=== PATIENT | male | born 1990 | race American Indian/Alaskan Native ===

== ENCOUNTER 2016-05-28 18:54 | Emergency (ER) | payer SELFPAY ==
[2016-05-28 20:19] LABS: Basophils % (Auto) 0.7 % (0.0-1.8); Eosinophils % (Auto) 0.3 % (0.0-4.3); Hematocrit 42.2 % (35.5-45.6); Hemoglobin 14.4 gm/dl (11.8-15.2); Mean Corpuscular HGB Conc 34 % (32-34); Mean Corpuscular Hemoglobin 28 pg (28-32); Mean Corpuscular Volume 81 fl (84-94); Platelet Count 274 K/mm3 (140-440); Red Cell Distribution Width 14.9 % (13.2-15.2); White Blood Count 6.2 K/mm3 (4.5-11.0)
[2016-05-28 20:33] LABS: Anion Gap 20 mmol/L; BUN/Creatinine Ratio 8.18; Blood Urea Nitrogen 9 mg/dL (9-20); Carbon Dioxide 22 mmol/L (22-30); Chloride 99.9 mmol/L (98-107); Glucose 99 mg/dL (75-100); Potassium 3.8 mmol/L (3.6-5.0); Sodium 138 mmol/L (137-145)
[2016-05-28 20:48] LABS: Urine Drugs of Abuse Note Disclamer
[2016-05-28] MEDS ORDERED: NORMODYNE IV ONE (20:53)
--- NOTE | 2016-05-28 21:01 | Emergency Department Report ---
HPI - General Chief Complaint: Psych Time Seen by Provider: 05/28/16 19:57 - HPI HPI: The patient is a 25 yo male who presents for evaluation of mental health. The patient has a history of past suicide attempt and schizoaffective disease. The patient reports 4 days of constant and severe sadness, exacerbated with alcohol consumption, and associated with suicidal ideations. He states that he has thought of a plan to overdose on his prescription medications. The patient denies fever, headache, unexplained weight loss or weight gain, heat or cold intolerance, skin, hair, or nail changes, neuro deficits, homicidal ideations, or auditory or visual hallucinations. ED Past Medical Hx - Past Medical History Previous Medical History?: Yes Hx Hypertension: Yes Hx Psychiatric Treatment: Yes (SCHIZOPHRENIA / PTSD) Additional medical history: hypothyroid - Surgical History Past Surgical History?: No - Social History Smoking Status: Current Every Day Smoker Substance Use Type: Alcohol - Medications Home Medications: Home Medications Medication Instructions Recorded Confirmed Last Taken Type Celexa 30 mg PO DAILY 10/25/14 11/29/14 11/18/14 History Lisinopril 10 mg PO DAILY 10/25/14 11/29/14 11/18/14 History SEROquel 500 mg PO QHS 10/25/14 11/29/14 11/17/14 History Synthroid 25 mcg PO DAILY 10/25/14 11/29/14 11/18/14 History Xanax TAB 2 mg PO TID 10/25/14 11/29/14 11/17/14 History traZODone 250 mg PO QHS 10/25/14 11/29/14 11/17/14 History ED Review of Systems ROS: Stated complaint: SUICIDAL THOUGHTS Other details as noted in HPI Constitutional: denies: fever ENT: denies: throat or neck pain Respiratory: denies: cough, shortness of breath Cardiovascular: denies: chest pain Endocrine: denies unexplained weight loss or gain Gastrointestinal: denies: abdominal pain, nausea Genitourinary: denies: dysuria Musculoskeletal: denies: leg swelling Skin: denies: rash Neurological: denies: headache Hematological/Lymphatic: denies: easy bleeding or easy bruising Psych: dreports sadness Physical Exam - Physical Exam Vital Signs: Vital Signs 05/28/16 19:30 Temperature 98.9 F Pulse Rate 110 H Respiratory 22 Rate Blood Pressure 162/110 O2 Sat by Pulse 100 Oximetry Physical Exam: General: well-nourished, well-developed, no acute distress Head: Normocephalic, atraumatic Eyes: normal sclera ENT: Mucous membranes are pale and dry Neck: No neck stiffness, no cervical adenopathy Respiratory: Breath sounds equal bilaterally, no wheezing, rales, or rhonchi Cardio: S1 and S2 present, no murmurs, rubs, gallops, capillary refill is delayed Abdomen: Normoactive bowel sounds, soft abdomen, no rigidity, no guarding or rebound tenderness Musc: No pitting edema Skin: No rash Neuro: Alert oriented 3, minimal drowsiness, no facial drooping, normal speech , no pronator drift, no sensation or motor deficits, reflexes 2+ symmetric on DTR testing, no obvious gross neuro deficits Psych: Flat affect, depressed mood, poor insight, positive suicidal ideation ED Course Vital Signs 05/28/16 19:30 Temperature 98.9 F Pulse Rate 110 H Respiratory 22 Rate Blood Pressure 162/110 O2 Sat by Pulse 100 Oximetry ED Medical Decision Making - Lab Data Result diagrams: 05/28/16 20:05 05/28/16 20:05 - Medical Decision Making The patient was seen and examined by myself. The patient is placed on a director medical safety and continuous pulse ox. On initial evaluation, the patient was found to be in no distress. Labs are obtained. Lab results revealed positive marijuana screen, and otherwise are grossly unremarkable. The patient is medically clear. Mental health is consulted. Mental health evaluates the patient and agrees that the patient is at risk of harm to self. A 1013 is completed. The patient will be admitted to a psychiatric facility once bed placement is obtained. Critical care attestation.: If time is entered above; I have spent that time in minutes in the direct care of this critically ill patient, excluding procedure time. ED Disposition Clinical Impression: Suicidal ideation, Asymptomatic hypertensive urgency, Marijuana use, Suicidal ideation Depression Qualifiers: Depression Type: unspecified Qualified Code(s): F32.9 - Major depressive disorder, single episode, unspecified Disposition: DC/TX PSY HOSP/PSY UNIT Is pt being admited?: No Does the pt Need Aspirin: No Condition: Stable Referrals: PRIMARY CARE, [Primary Care Provider] - 3-5 Days Time of Disposition: 20:53
[2016-05-28 21:02] LABS: Bilirubin,Urine NEG (Negative); Blood,Urine NEG (Negative); Ketones,Urine 20 mg/dL (Negative); Leukocyte Esterase,Urine NEG (Negative); Mucus,Urine 3+ /HPF; Nitrite,Urine NEG (Negative); Protein,Urine <15 mg/dL mg/dL (Negative); Urobilinogen,Urine < 2.0 mg/dL (<2.0); WBC,Urine < 1.0 /HPF (0.0-6.0)
[2016-05-28] MEDS ORDERED: MILK OF MAGNESIA PO PRN (21:03)
[2016-05-28] MEDS ORDERED: CATAPRES PO ONE (21:03)
[2016-05-28] MEDS ORDERED: TYLENOL PO PRN (21:03)
[2016-05-28] MEDS ORDERED: ALUM-MAG HYDROX-SIMETH 200-200-20MG/5ML PO PRN (21:03)
[2016-05-29] MEDS ORDERED: SYNTHROID PO SCH (06:00)
[2016-05-29 10:39] VITALS: BP 127/75
[2016-05-29] MEDS: ZESTRIL PO SCH ×2 (10:40)
== END 2016-05-29 13:57 ==
LOC: ED 18:54
DX: R45.851 Suicidal ideations (principal); I10 Essential (primary) hypertension; F32.9 Major depressive disorder, single episode, unspecified; F12.10 Cannabis abuse, uncomplicated; F20.9 Schizophrenia, unspecified; E03.9 Hypothyroidism, unspecified; F17.200 Nicotine dependence, unspecified, uncomplicated
CPT/HCPCS: 36415; 80048; 80307; 81001; 85025; 99285; G0480; 80320

== ENCOUNTER 2016-06-23 20:24 | Emergency (ER) | payer SELFPAY ==
--- NOTE | 2016-06-23 20:45 | Emergency Department Report ---
Stated Complaint: DEPRESSION,SUICIDAL THOUGHTS,ANXIETY - HPI History of Present Illness: Patient here complaining of depression and possible suicidal thoughts. Patient also denies auditory or visual hallucinations also denies any homicidal thoughts or ideation. - Exam Physical Exam: Patient work alert and oriented no acute distress. Calm nonthreatening and able to carry on meaningful conversation. Shows appropriate mood and insight. MSE screening note: Focused history and physical exam performed. Due to findings the following was ordered: ED Disposition for MSE Condition: Stable
[2016-06-23 21:27] LABS: Basophils % (Auto) 0.6 % (0.0-1.8); Eosinophils % (Auto) 0.8 % (0.0-4.3); Hemoglobin 14.8 gm/dl (11.8-15.2); Mean Corpuscular HGB Conc 33 % (32-34); Mean Corpuscular Hemoglobin 27 pg (28-32); Mean Corpuscular Volume 81 fl (84-94); Platelet Count 270 K/mm3 (140-440); Red Blood Count 5.55 M/mm3 (3.65-5.03); Red Cell Distribution Width 14.7 % (13.2-15.2); White Blood Count 8.9 K/mm3 (4.5-11.0)
[2016-06-23 21:41] LABS: Anion Gap 18 mmol/L; Blood Urea Nitrogen 9 mg/dL (9-20); Calcium 9.3 mg/dL (8.4-10.2); Carbon Dioxide 23 mmol/L (22-30); Chloride 99.4 mmol/L (98-107); Glucose 113 mg/dL (75-100); Potassium 3.9 mmol/L (3.6-5.0); Sodium 136 mmol/L (137-145)
[2016-06-23 23:28] LABS: Urine Drugs of Abuse Note Disclamer
[2016-06-23 23:44] LABS: Bilirubin,Urine NEG (Negative); Blood,Urine NEG (Negative); Ketones,Urine NEG (Negative); Leukocyte Esterase,Urine NEG (Negative); Mucus,Urine 2+ /HPF; Nitrite,Urine NEG (Negative); Protein,Urine <15 mg/dL mg/dL (Negative); Urobilinogen,Urine < 2.0 mg/dL (<2.0)
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
[2016-06-24] MEDS ORDERED: celeXA PO SCH (10:00)
[2016-06-24] MEDS: ZESTRIL PO SCH (11:39)
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
[2016-06-24] MEDS ORDERED: DESYREL PO SCH ×2 (22:00)
[2016-06-25] MEDS: ZESTRIL PO SCH (10:15)
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
--- NOTE | 2016-06-25 15:11 | Event Note ---
Date: 06/25/16 Vital signs are reviewed and appreciated. Psychiatric consultation is appreciated. Patient awaiting psychiatric placement. Patient currently on quetiapine, psychiatry recommends trazodone, Celexa, Klonopin Vital Signs 06/23/16 06/24/16 06/24/16 20:43 03:47 07:28 Temperature 99.0 F 98.7 F Pulse Rate 105 H 92 H Respiratory 20 20 20 Rate Blood Pressure Blood Pressure 154/88 143/84 [Right] O2 Sat by Pulse 99 100 100 Oximetry 06/24/16 06/24/16 06/25/16 10:00 20:00 07:30 Temperature 98.6 F 98.7 F 97.8 F Pulse Rate 91 H 87 72 Respiratory 20 18 18 Rate Blood Pressure Blood Pressure 140/85 124/70 105/59 [Right] O2 Sat by Pulse 100 97 98 Oximetry 06/25/16 10:15 Temperature Pulse Rate 72 Respiratory Rate Blood Pressure 110/79 Blood Pressure [Right] O2 Sat by Pulse Oximetry
[2016-06-25] MEDS ORDERED: ATIVAN ONE (18:35)
[2016-06-25] MEDS ORDERED: ATIVAN PO ONE (18:35)
[2016-06-26] MEDS: ZESTRIL PO SCH (09:58)
--- NOTE | 2016-06-26 11:21 | Progress Note ---
Subjective - Reason for Consult Consult date: 06/26/16 Reason for consult: Psychiatry Follow-up - Chief Complaint Chief complaint: This is a 25-year-old Afro-[place] male who presented to the emergency department for suicidal ideations, anxiety, and insomnia. Today patient acknowledged getting sleep without waking up during the night. He states having suicidal thoughts intermittently with no plan. Patient has been completing his ADL's. He rate his depression/anxiety 8/10, with 10 being the worse. Per the patient, his paranoia has decreased. Patient denies HI's or AVH"s. Mental Status Exam - Vital signs Last Vital Signs Temp 97.3 F L 06/26/16 08:00 Pulse 87 06/26/16 08:00 Resp 16 06/26/16 09:11 BP 124/84 06/26/16 09:58 Pulse Ox 100 06/26/16 09:11 - Exam Orientation: time, place, person Mood: other ("Depressed") Thought content: other (None) Thought Process: Intact Perceptions: none Speech: normal rate and pattern Concentration: other (Intact) Motor activity: other (Ambulatory) Level of consciousness: alert Memory: Intact Interaction: cooperative, pleasant Assessment and Plan Impression: Hx of Schizoaffective Disorder. Today patient rate his depression and anxiety 8/10, with 10 being the worse. He states that his paranoia has decreased. He stated having suicidal thoughts intermittently without a plan. Recommendation: Seroquel 100 mg PO BID at 0900/1200, also Seroquel 400 mg PO HS for schizoaffective disorder. Continue 1013, patient has been accepted at [facility]. Pending transport to hospital.
[2016-06-27] MEDS: ZESTRIL PO SCH (11:39)
--- NOTE | 2016-06-27 16:04 | Progress Note ---
Subjective - Reason for Consult Consult date: 06/27/16 Reason for consult: depression, SI, AH - Chief Complaint Chief complaint: Today the patient remains fairly anxious on examination. He continues to struggle with periodic irritability as well as a depressed mood. We had recently changed the dosing and increase the Seroquel; however, he remains fairly symptomatic. His sleep remains disturbed. He has periodic auditory hallucinations although they have reduced in intensity and frequency through the course of the current hospital ER stay. Mental Status Exam - Vital signs Last Vital Signs Temp 98.1 F 06/26/16 21:14 Pulse 82 06/27/16 11:39 Resp 20 06/26/16 22:02 BP 140/70 06/27/16 11:39 Pulse Ox 99 06/26/16 22:02 - Exam Orientation: time, place Affect: depressed, anxious Mood: anxious Thought content: obsessions Thought Process: Intact Perceptions: auditory Concentration: focused Motor activity: lethargic Level of consciousness: sedated Sleep Symptoms: Sleepiness Interaction: cooperative Assessment and Plan Impression: Schizoaffective disorder Plan: Increased to Seroquel 600 at bedtime and change to Seroquel 100mg to 9 AM as well as 3 PM Patient has been accepted at [facility] and is awaiting transportation to that facility
[2016-06-28 02:41] VITALS: BP 120/79
== END 2016-06-28 07:46 | disposition admitted as inpatient to this hospital (09) ==
LOC: ED 20:24 → EEVIPCON 20:24 → ED 06-28 07:46
DX: R45.851 Suicidal ideations (principal); F41.9 Anxiety disorder, unspecified; I10 Essential (primary) hypertension; F20.9 Schizophrenia, unspecified; F43.10 Post-traumatic stress disorder, unspecified; E03.9 Hypothyroidism, unspecified; F17.200 Nicotine dependence, unspecified, uncomplicated
CPT/HCPCS: 36415; 80048; 80307; 81001; 85025; 99285; G0480; 80320

== ENCOUNTER 2016-07-08 18:20 | Emergency (ER) | payer SELFPAY ==
[2016-07-08 20:27] LABS: Basophils % (Auto) 0.2 % (0.0-1.8); Eosinophils % (Auto) 1.6 % (0.0-4.3); Hemoglobin 14.2 gm/dl (11.8-15.2); Mean Corpuscular HGB Conc 33 % (32-34); Mean Corpuscular Hemoglobin 27 pg (28-32); Mean Corpuscular Volume 80 fl (84-94); Platelet Count 261 K/mm3 (140-440); Red Blood Count 5.37 M/mm3 (3.65-5.03); Red Cell Distribution Width 15.2 % (13.2-15.2); White Blood Count 6.9 K/mm3 (4.5-11.0)
[2016-07-08 20:44] LABS: Anion Gap 18 mmol/L; Blood Urea Nitrogen 9 mg/dL (9-20); Calcium 8.9 mg/dL (8.4-10.2); Carbon Dioxide 24 mmol/L (22-30); Glucose 122 mg/dL (75-100); Potassium 3.7 mmol/L (3.6-5.0); Sodium 137 mmol/L (137-145)
[2016-07-08 21:33] LABS: Urine Drugs of Abuse Note Disclamer
[2016-07-08 21:48] LABS: Bilirubin,Urine NEG (Negative); Blood,Urine NEG (Negative); Ketones,Urine NEG (Negative); Leukocyte Esterase,Urine NEG (Negative); Nitrite,Urine NEG (Negative); Protein,Urine <15 mg/dL mg/dL (Negative); Urobilinogen,Urine < 2.0 mg/dL (<2.0); WBC,Urine < 1.0 /HPF (0.0-6.0)
[2016-07-08 23:54] VITALS: BP 142/87
--- NOTE | 2016-07-09 00:26 | Emergency Department Report ---
ED Psych HPI - General Chief Complaint: Psych Stated Complaint: MED CLEARANCE/ANCHOR Time Seen by Provider: 07/09/16 00:10 Source: patient, old records reviewed Mode of arrival: Ambulatory Limitations: No Limitations - History of Present Illness Initial Comments: This is a 25-year-old male. He has a past medical history of PTSD. The patient also has a history of cannabis abuse. He presents to the ER with himself suicidality. He requests medical clearance for psychiatric placement. He denies homicidal and suicidal ideations at this time. He denies access to guns and firearms. He denies toxic ingestions. He denies chest pain, shortness of breath, abdominal pain, nausea, vomiting diarrhea. He is sent to the ER for medical clearance for psychiatric placement. MD Complaint: suicidal ideation, feels depressed -: Gradual Associated Psychiatric Symptoms: suicidal ideation History of same: Yes Quality: resolved prior to arrival Improves With: none Worsens With: none Associated Symptoms: denies other symptoms If Self Harm: admits thoughts of - Related Data Home Medications Medication Instructions Recorded Confirmed Last Taken Celexa 30 mg PO DAILY 10/25/14 06/24/16 11/18/14 Lisinopril 10 mg PO DAILY 10/25/14 06/24/16 11/18/14 SEROquel 500 mg PO QHS 10/25/14 06/24/16 11/17/14 Synthroid 25 mcg PO DAILY 10/25/14 06/24/16 11/18/14 Xanax TAB 2 mg PO TID 10/25/14 06/24/16 11/17/14 traZODone 250 mg PO QHS 10/25/14 06/24/16 11/17/14 Allergies Allergy/AdvReac Type Severity Reaction Status Date / Time haloperidol [From Haldol] Allergy Swelling Verified 11/18/14 20:03 haloperidol lactate Allergy Swelling Verified 11/18/14 20:03 [From Haldol] ED Review of Systems ROS: Stated complaint: MED CLEARANCE/ANCHOR Other details as noted in HPI Constitutional: denies: malaise Eyes: denies: eye discharge ENT: denies: epistaxis Respiratory: denies: cough Cardiovascular: denies: chest pain Gastrointestinal: denies: abdominal pain Genitourinary: denies: dysuria Musculoskeletal: denies: back pain Skin: denies: lesions Neurological: denies: weakness Psychiatric: denies: homicidal thoughts ED Past Medical Hx - Past Medical History Hx Hypertension: Yes Hx Psychiatric Treatment: Yes (SCHIZOPHRENIA / PTSD) Additional medical history: hypothyroid - Social History Smoking Status: Unknown if ever smoked Substance Use Type: None - Medications Home Medications: Home Medications Medication Instructions Recorded Confirmed Last Taken Type Celexa 30 mg PO DAILY 10/25/14 06/24/16 11/18/14 History Lisinopril 10 mg PO DAILY 10/25/14 06/24/16 11/18/14 History SEROquel 500 mg PO QHS 10/25/14 06/24/16 11/17/14 History Synthroid 25 mcg PO DAILY 10/25/14 06/24/16 11/18/14 History Xanax TAB 2 mg PO TID 10/25/14 06/24/16 11/17/14 History traZODone 250 mg PO QHS 10/25/14 06/24/16 11/17/14 History ED Physical Exam - General Limitations: No Limitations General appearance: alert, in no apparent distress - Head Head exam: Present: atraumatic, normocephalic - Eye Eye exam: Present: normal appearance, EOMI. Absent: nystagmus - ENT ENT exam: Present: normal exam, normal orophraynx, mucous membranes moist, normal external ear exam - Neck Neck exam: Present: normal inspection, full ROM. Absent: tenderness, meningismus - Respiratory Respiratory exam: Present: normal lung sounds bilaterally. Absent: respiratory distress, wheezes, rales, rhonchi, stridor, chest wall tenderness, accessory muscle use, decreased breath sounds, prolonged expiratory - Cardiovascular Cardiovascular Exam: Present: regular rate, normal rhythm, normal heart sounds. Absent: bradycardia, tachycardia, irregular rhythm, systolic murmur, diastolic murmur, rubs, gallop - GI/Abdominal GI/Abdominal exam: Present: soft, normal bowel sounds. Absent: distended, tenderness, guarding, rebound, rigid, pulsatile mass - Rectal Rectal exam: Present: deferred - Extremities Exam Extremities exam: Present: normal inspection, full ROM, normal capillary refill. Absent: tenderness, pedal edema, joint swelling, calf tenderness - Back Exam Back exam: Present: normal inspection, full ROM. Absent: tenderness, CVA tenderness (R), CVA tenderness (L), muscle spasm, paraspinal tenderness, vertebral tenderness - Neurological Exam Neurological exam: Present: alert, oriented X3, normal gait, other (Extraocular movements intact. Tongue midline. No facial droop. Facial sensation intact to light touch in the V1, V2, V3 distribution bilaterally. 5 and 5 strength in 4 extremities.. Sensation is intact to light touch in 4 extremities.). Absent : motor sensory deficit - Psychiatric Psychiatric exam: Present: flat affect. Absent: homicidal ideation - Skin Skin exam: Present: warm, dry, intact, normal color. Absent: rash ED Course Vital Signs 07/08/16 07/08/16 07/08/16 19:57 23:49 23:52 Temperature 99 F 98.4 F Pulse Rate 105 H 105 H Respiratory 20 18 20 Rate Blood Pressure 146/99 Blood Pressure 142/87 [Right] O2 Sat by Pulse 100 97 Oximetry - Reevaluation(s) Reevaluation #1: 07/09/16 01:04 differential diagnosis: Suicidality, mood disorder, medical clearance for psychiatric placement. Assessment and plan: 25-year-old male here for medical clearance for psychiatric placement with resolved suicidality. He is alert and oriented 3, has a GCS of 15, with an NIH score is 0. His physical examination is unremarkable, and his tachycardia has improved on my physical examination. Given his psychiatric history and his endorse suicidality, he is placed on a 1013. Serum toxicology studies have been ordered, and they are pending. Once these have resulted, and they are not abnormal, I would consider the patient medically stable for psychiatric placement. Reevaluation #2: 07/09/16 01:54 Toxicology studies are unremarkable. At this point in time, I see no immediate medical contraindication to psychiatric admission/evaluation. The crisis team was informed. ED Medical Decision Making - Lab Data Result diagrams: 07/08/16 20:15 07/08/16 20:15 Critical care attestation.: If time is entered above; I have spent that time in minutes in the direct care of this critically ill patient, excluding procedure time. ED Disposition Clinical Impression: Suicidal ideation Disposition: DC/TX PSY HOSP/PSY UNIT Is pt being admited?: No Does the pt Need Aspirin: No Condition: Good Referrals: PRIMARY CARE, [Primary Care Provider] - 3-5 Days
[2016-07-09] MEDS ORDERED: ATIVAN IM PRN (01:02)
== END 2016-07-09 03:13 ==
LOC: ED 18:20
DX: R45.851 Suicidal ideations (principal); I10 Essential (primary) hypertension; F20.9 Schizophrenia, unspecified; Z88.8 Allergy status to other drugs, medicaments and biological substances
CPT/HCPCS: 36415; 80048; 80307; 81001; 85025; 99285; G0480; 80320; 99284

== ENCOUNTER 2016-08-30 10:46 | Emergency (ER) | payer OTHER ==
[2016-08-30 11:19] LABS: Urine Drugs of Abuse Note Disclamer
[2016-08-30 11:26] LABS: Eosinophils % (Auto) 0.5 % (0.0-4.3); Hematocrit 46.8 % (35.5-45.6); Hemoglobin 15.2 gm/dl (11.8-15.2); Mean Corpuscular HGB Conc 33 % (32-34); Mean Corpuscular Hemoglobin 27 pg (28-32); Mean Corpuscular Volume 82 fl (84-94); Platelet Count 280 K/mm3 (140-440); Red Blood Count 5.74 M/mm3 (3.65-5.03); Red Cell Distribution Width 14.6 % (13.2-15.2)
[2016-08-30 11:36] LABS: Bilirubin,Urine NEG (Negative); Blood,Urine NEG (Negative); Ketones,Urine NEG (Negative); Leukocyte Esterase,Urine NEG (Negative); Mucus,Urine 3+ /HPF; Nitrite,Urine NEG (Negative)
[2016-08-30 11:43] LABS: Anion Gap 21 mmol/L; BUN/Creatinine Ratio 9.09; Blood Urea Nitrogen 10 mg/dL (9-20); Calcium 9.5 mg/dL (8.4-10.2); Carbon Dioxide 23 mmol/L (22-30); Chloride 99.2 mmol/L (98-107); Glucose 116 mg/dL (75-100); Potassium 4.5 mmol/L (3.6-5.0); Sodium 139 mmol/L (137-145)
--- NOTE | 2016-08-30 12:34 | Emergency Department Report ---
HPI - General Chief Complaint: Psych Time Seen by Provider: 08/30/16 12:20 - HPI HPI: This is a 26-year-old Afro-[place] male who presents to the emergency department with complaint of depression, suicidal ideations. The patient has a history of schizoaffective disorder, bipolar disorder and PTSD. He's been having some insomnia over the past 3 days. He is feeling anxious and started to feel slightly paranoid. However he woke up this morning and says that everything was worse than usual and he thought about overdosing on his pain medication that he takes for chronic shoulder pain. He called the [facility] who talked him out of harming himself and he drove himself in to be seen and to receive help. ED Past Medical Hx - Past Medical History Hx Hypertension: Yes Hx Psychiatric Treatment: Yes (SCHIZOPHRENIA / PTSD) Additional medical history: hypothyroid - Social History Smoking Status: Never Smoker - Medications Home Medications: Home Medications Medication Instructions Recorded Confirmed Last Taken Type Celexa 30 mg PO DAILY 10/25/14 06/24/16 11/18/14 History Lisinopril 10 mg PO DAILY 10/25/14 06/24/16 11/18/14 History SEROquel 500 mg PO QHS 10/25/14 06/24/16 11/17/14 History Synthroid 25 mcg PO DAILY 10/25/14 06/24/16 11/18/14 History Xanax TAB 2 mg PO TID 10/25/14 06/24/16 11/17/14 History traZODone 250 mg PO QHS 10/25/14 06/24/16 11/17/14 History ED Review of Systems ROS: Stated complaint: SUICIDAL THOUGHTS/DEPRESSION/ANXIETY Other details as noted in HPI Comment: All other systems reviewed and negative Constitutional: denies: chills, fever Eyes: denies: eye pain, eye discharge, vision change ENT: denies: ear pain, throat pain Respiratory: denies: cough, shortness of breath, wheezing Cardiovascular: denies: chest pain, palpitations Gastrointestinal: denies: abdominal pain, nausea, diarrhea Genitourinary: denies: urgency, dysuria Musculoskeletal: denies: back pain, joint swelling, arthralgia Skin: denies: rash, lesions Neurological: denies: headache, weakness, paresthesias Psychiatric: depression, suicidal thoughts. denies: auditory hallucinations, visual hallucinations Physical Exam - Physical Exam Vital Signs: Vital Signs 08/30/16 10:59 Temperature 99.7 F H Pulse Rate 116 H Respiratory 16 Rate Blood Pressure 148/88 O2 Sat by Pulse 97 Oximetry Physical Exam: GENERAL: The patient is well-developed well-nourished. HEENT: Normocephalic. Atraumatic. Extraocular motions are intact. Patient has moist mucous membranes. Pupils equal reactive to light bilaterally. NECK: Supple. Trachea is midline. CHEST/LUNGS: Clear to auscultation. There is no respiratory distress noted. HEART/CARDIOVASCULAR: Regular. There is mild tachycardia. There is no gallop rub or murmur. ABDOMEN: Abdomen is soft, nontender. Patient has normal bowel sounds. There is no abdominal distention. SKIN: There is no rash. There is no edema. There is no diaphoresis. NEURO: The patient is awake, alert, and oriented. The patient is cooperative. The patient has no focal neurologic deficits. The patient has normal speech. MUSCULOSKELETAL: There is no tenderness or deformity. There is no limitation range of motion. There is no evidence of acute injury. ED Course Vital Signs 08/30/16 10:59 Temperature 99.7 F H Pulse Rate 116 H Respiratory 16 Rate Blood Pressure 148/88 O2 Sat by Pulse 97 Oximetry ED Medical Decision Making - Lab Data Result diagrams: 08/30/16 11:13 08/30/16 11:13 - Medical Decision Making 26-year-old male with a history of schizoaffective, bipolar disorder and PTSD, and a history of some loss as he lost his son to a motor vehicle accident one year ago, presents with suicidal ideations, insomnia and what appears to be depression. Patient was made a 1013 secondary to his suicidal ideations. However I give the patient credit for calling a crisis hotline, not harming himself, and driving into be seen. His labs are mostly unremarkable do not show any etiology of his symptoms. The patient's vitals are stable. He has some mild tachycardia but the patient also is anxious. He was given a dose of Xanax to help him rest and help with the anxiety. Otherwise I consider this patient to be medically cleared for psychiatric placement. - Differential Diagnosis schizophrenia, schizoaffective, bipolar disorder, depression Critical Care Time: No Critical care attestation.: If time is entered above; I have spent that time in minutes in the direct care of this critically ill patient, excluding procedure time. ED Disposition Clinical Impression: Suicidal ideation, Bipolar 1 disorder Depression Qualifiers: Depression Type: unspecified Qualified Code(s): F32.9 - Major depressive disorder, single episode, unspecified Disposition: DC/TX PSY HOSP/PSY UNIT Is pt being admited?: No Condition: Stable Referrals: PRIMARY CARE, [Primary Care Provider] - 3-5 Days Time of Disposition: 13:37
[2016-08-30] MEDS ORDERED: XANAX PO ONE (13:33)
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
[2016-08-30] MEDS ORDERED: LaMICtal PO SCH (22:00)
[2016-08-31 09:17] VITALS: BP 131/74
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
== END 2016-08-31 15:05 ==
LOC: ED 10:46
DX: R45.851 Suicidal ideations (principal); F31.9 Bipolar disorder, unspecified; F32.9 Major depressive disorder, single episode, unspecified; I10 Essential (primary) hypertension; E03.9 Hypothyroidism, unspecified; F43.10 Post-traumatic stress disorder, unspecified
CPT/HCPCS: 36415; 80048; 80307; 81001; 85025; 99285; G0480; 80320

== ENCOUNTER 2019-08-10 13:33 | Emergency (ER) | payer SELFPAY ==
[2019-08-10 14:27] LABS: Basophils # (Auto) 0.1 K/mm3 (0.0-0.1); Basophils % (Auto) 1.1 % (0.0-1.8); Eosinophils % (Auto) 0.3 % (0.0-4.3); Hematocrit 46.5 % (35.5-45.6); Hemoglobin 15.2 gm/dl (11.8-15.2); Lymphocytes # (Auto) 1.2 K/mm3 (1.2-5.4); Lymphocytes % (Auto) 26.1 % (13.4-35.0); Mean Corpuscular HGB Conc 33 % (32-34); Mean Corpuscular Volume 86 fl (84-94); Monocytes # (Auto) 0.5 K/mm3 (0.0-0.8); Monocytes % (Auto) 10.2 % (0.0-7.3); Platelet Count 237 K/mm3 (140-440); Red Cell Distribution Width 14.2 % (13.2-15.2)
[2019-08-10 14:31] LABS: BUN/Creatinine Ratio 8; Blood Urea Nitrogen 8 mg/dL (9-20); Calcium 9.2 mg/dL (8.4-10.2); Hemolysis Index 4
[2019-08-10 14:39] LABS: Amphetamine Screen,Urine PRESUMPTIVE NEGATIVE; Benzodiazepines Screen,Urine PRESUMPTIVE NEGATIVE; Cocaine Screen,Urine PRESUMPTIVE NEGATIVE; Methadone Screen,Urine PRESUMPTIVE NEGATIVE; Opiate Screen,Urine PRESUMPTIVE NEGATIVE
[2019-08-10 14:42] LABS: Bacteria,Urine 1+ /HPF (Negative); Bilirubin,Urine NEG (Negative); Blood,Urine NEG (Negative); Color,Urine Yellow (Yellow); Mucus,Urine 3+ /HPF; Protein,Urine <15 mg/dL mg/dL (Negative)
[2019-08-10 15:17] LABS: Cannabinoid Screen,Urine PRESUMPTIVE POSITIVE
--- NOTE | 2019-08-10 15:39 | Emergency Department Report ---
ED Psych HPI - General Chief Complaint: Psych Stated Complaint: MEDICAL CLEARANCE FOR ANCHOR Time Seen by Provider: 08/10/19 14:20 Source: patient Mode of arrival: Ambulatory - History of Present Illness Initial Comments: This is a 29-year-old man with a history of bipolar disorder/PTSD. He denies hallucinosis. He states he is compliant with his medications to include Celexa, trazodone and Seroquel. He states his last hospitalization for depression and suicidal ideation was in May at [facility]. He states he went to [facility] today and was sent here for medical clearance. He reports feeling suicidal. He denies any attempt or gesture. He is quite tearful. He is requesting psychiatric admission. MD Complaint: suicidal ideation, feels depressed -: Gradual, days(s), week(s) Associated Psychiatric Symptoms: depression History of same: Yes Quality: constant Improves With: none Worsens With: none Associated Symptoms: denies other symptoms Treatments Prior to Arrival: none If Self Harm: admits thoughts of - Related Data Home Medications Medication Instructions Recorded Confirmed Last Taken Celexa 30 mg PO DAILY 10/25/14 08/30/16 11/18/14 Lisinopril 10 mg PO DAILY 10/25/14 08/30/16 11/18/14 SEROquel 500 mg PO QHS 10/25/14 08/30/16 11/17/14 Synthroid 25 mcg PO DAILY 10/25/14 08/30/16 11/18/14 Xanax TAB 2 mg PO TID 10/25/14 08/30/16 11/17/14 traZODone 250 mg PO QHS 10/25/14 08/30/16 11/17/14 Allergies Allergy/AdvReac Type Severity Reaction Status Date / Time haloperidol [From Haldol] Allergy Swelling Verified 11/18/14 20:03 haloperidol lactate Allergy Swelling Verified 11/18/14 20:03 [From Haldol] ED Review of Systems ROS: Stated complaint: MEDICAL CLEARANCE FOR ANCHOR Other details as noted in HPI Constitutional: denies: chills, fever Eyes: denies: eye pain, eye discharge, vision change ENT: denies: ear pain, throat pain Respiratory: denies: cough, shortness of breath, wheezing Cardiovascular: denies: chest pain, palpitations Endocrine: no symptoms reported Gastrointestinal: denies: abdominal pain, nausea, diarrhea Genitourinary: denies: urgency, dysuria Musculoskeletal: denies: back pain, joint swelling, arthralgia Skin: denies: rash, lesions Neurological: denies: headache, weakness, paresthesias Psychiatric: depression, suicidal thoughts. denies: anxiety Hematological/Lymphatic: denies: easy bleeding, easy bruising ED Past Medical Hx - Past Medical History Previous Medical History?: Yes Hx Hypertension: Yes Hx Psychiatric Treatment: Yes (SCHIZOPHRENIA / PTSD) Additional medical history: hypothyroid - Surgical History Past Surgical History?: No - Social History Smoking Status: Current Every Day Smoker Substance Use Type: Alcohol, Marijuana - Medications Home Medications: Home Medications Medication Instructions Recorded Confirmed Last Taken Type Celexa 30 mg PO DAILY 10/25/14 08/30/16 11/18/14 History Lisinopril 10 mg PO DAILY 10/25/14 08/30/16 11/18/14 History SEROquel 500 mg PO QHS 10/25/14 08/30/16 11/17/14 History Synthroid 25 mcg PO DAILY 10/25/14 08/30/16 11/18/14 History Xanax TAB 2 mg PO TID 10/25/14 08/30/16 11/17/14 History traZODone 250 mg PO QHS 10/25/14 08/30/16 11/17/14 History ED Physical Exam - General Limitations: No Limitations General appearance: alert, in no apparent distress, obese - Head Head exam: Present: atraumatic, normocephalic - Eye Eye exam: Present: normal appearance. Absent: scleral icterus - ENT ENT exam: Present: mucous membranes moist - Neck Neck exam: Present: normal inspection. Absent: tenderness, meningismus - Respiratory Respiratory exam: Present: normal lung sounds bilaterally. Absent: respiratory distress - Cardiovascular Cardiovascular Exam: Present: regular rate, normal rhythm. Absent: systolic murmur, diastolic murmur, rubs, gallop - GI/Abdominal GI/Abdominal exam: Present: soft, normal bowel sounds. Absent: distended, tenderness, guarding, rebound - Rectal Rectal exam: Present: deferred - Extremities Exam Extremities exam: Present: normal inspection - Back Exam Back exam: Present: normal inspection - Neurological Exam Neurological exam: Present: alert, oriented X3, CN II-XII intact. Absent: motor sensory deficit - Psychiatric Psychiatric exam: Present: normal affect, normal mood - Skin Skin exam: Present: warm, dry, intact, normal color. Absent: rash ED Course Vital Signs 08/10/19 08/10/19 13:35 14:28 Temperature 98.3 F 98.8 F Pulse Rate 110 H 95 H Respiratory 18 18 Rate Blood Pressure 165/94 Blood Pressure 138/92 [Left] O2 Sat by Pulse 100 98 Oximetry ED Medical Decision Making - Lab Data Result diagrams: 08/10/19 14:01 08/10/19 14:01 Laboratory Results - last 24 hr 08/10/19 08/10/19 08/10/19 14:01 14:01 14:01 WBC RBC Hgb Hct MCV MCH MCHC RDW Plt Count Lymph % (Auto) [place] % (Auto) Eos % (Auto) Baso % (Auto) Lymph # Pratt # Eos # Baso # Seg Neutrophils % Seg Neutrophils # Sodium 143 Potassium 4.2 Chloride 107.5 H Carbon Dioxide 23 Anion Gap 17 BUN 8 L Creatinine 1.0 Estimated GFR > 60 BUN/Creatinine Ratio 8 Glucose 96 Calcium 9.2 Urine Color Urine Turbidity Urine pH Ur Specific [place] Urine Protein Urine Glucose (UA) Urine Ketones Urine Blood Urine Nitrite Urine Bilirubin Urine Urobilinogen Ur Leukocyte Esterase Urine WBC (Auto) Urine RBC (Auto) Urine Bacteria (Auto) Urine Mucus Salicylates < 0.3 L Urine Opiates Screen Urine Methadone Screen Acetaminophen < 5.0 L Ur Barbiturates Screen Ur Phencyclidine Scrn Ur Amphetamines Screen U Benzodiazepines Scrn Urine Cocaine Screen U Marijuana (THC) Screen Drugs of Abuse Note Plasma/Serum Alcohol 08/10/19 08/10/19 08/10/19 14:01 14:01 Unknown WBC 4.4 L RBC 5.40 H Hgb 15.2 Hct 46.5 H MCV 86 MCH 28 MCHC 33 RDW 14.2 Plt Count 237 Lymph % (Auto) 26.1 Pratt % (Auto) 10.2 H Eos % (Auto) 0.3 Baso % (Auto) 1.1 Lymph # 1.2 Pratt # 0.5 Eos # 0.0 Baso # 0.1 Seg Neutrophils % 62.3 Seg Neutrophils # 2.8 Sodium Potassium Chloride Carbon Dioxide Anion Gap BUN Creatinine Estimated GFR BUN/Creatinine Ratio Glucose Calcium Urine Color Yellow Urine Turbidity Slightly-cloudy Urine pH 5.0 Ur Specific [place] 1.026 Urine Protein <15 mg/dl Urine Glucose (UA) Neg Urine Ketones Neg Urine Blood Neg Urine Nitrite Neg Urine Bilirubin Neg Urine Urobilinogen 2.0 Ur Leukocyte Esterase Neg Urine WBC (Auto) 3.0 Urine RBC (Auto) 6.0 Urine Bacteria (Auto) 1+ Urine Mucus 3+ Salicylates Urine Opiates Screen Urine Methadone Screen Acetaminophen Ur Barbiturates Screen Ur Phencyclidine Scrn Ur Amphetamines Screen U Benzodiazepines Scrn Urine Cocaine Screen U Marijuana (THC) Screen Drugs of Abuse Note Plasma/Serum Alcohol < 0.01 08/10/19 Unknown WBC RBC Hgb Hct MCV MCH MCHC RDW Plt Count Lymph % (Auto) Pratt % (Auto) Eos % (Auto) Baso % (Auto) Lymph # Pratt # Eos # Baso # Seg Neutrophils % Seg Neutrophils # Sodium Potassium Chloride Carbon Dioxide Anion Gap BUN Creatinine Estimated GFR BUN/Creatinine Ratio Glucose Calcium Urine Color Urine Turbidity Urine pH Ur Specific [place] Urine Protein Urine Glucose (UA) Urine Ketones Urine Blood Urine Nitrite Urine Bilirubin Urine Urobilinogen Ur Leukocyte Esterase Urine WBC (Auto) Urine RBC (Auto) Urine Bacteria (Auto) Urine Mucus Salicylates Urine Opiates Screen Presumptive negative Urine Methadone Screen Presumptive negative Acetaminophen Ur Barbiturates Screen Presumptive negative Ur Phencyclidine Scrn Presumptive negative Ur Amphetamines Screen Presumptive negative U Benzodiazepines Scrn Presumptive negative Urine Cocaine Screen Presumptive negative U Marijuana (THC) Screen Presumptive positive Drugs of Abuse Note Disclamer Plasma/Serum Alcohol Critical care attestation.: If time is entered above; I have spent that time in minutes in the direct care of this critically ill patient, excluding procedure time. ED Disposition Clinical Impression: Suicidal ideation, Bipolar 1 disorder, Medical clearance for psychiatric admission Depression Qualifiers: Depression Type: other depression Qualified Code(s): F32.89 - Other specified depressive episodes Disposition: [id number]/TX-65 PSY HOSP/PSY UNIT Is pt being admited?: No Does the pt Need Aspirin: No Condition: Stable Referrals: PRIMARY CARE, [Primary Care Provider] - 3-5 Days Time of Disposition: 15:39
[2019-08-10] MEDS: LORazepam 1 MG TAB PO PRN (18:53)
[2019-08-10] MEDS: traZODone 50 MG TAB PO SCH (22:00)
[2019-08-10] MEDS: QUEtiapine 100 MG TAB PO SCH (22:01)
[2019-08-11] MEDS: LISINOPRIL 10 MG TAB PO SCH (09:46)
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
[2019-08-11] MEDS: clonazePAM 0.5 MG TAB PO SCH ×2 (11:41→23:11)
[2019-08-11] MEDS ORDERED: FLUoxetine 10 MG TAB PO SCH (12:00)
[2019-08-11] MEDS: LORazepam 1 MG TAB PO PRN (18:02)
[2019-08-11] MEDS: traZODone 50 MG TAB PO SCH (23:09)
[2019-08-11] MEDS: QUEtiapine 100 MG TAB PO SCH (23:10)
[2019-08-12] MEDS: CITALOPRAM 20 MG TAB PO SCH (11:00)
[2019-08-12] MEDS: clonazePAM 0.5 MG TAB PO SCH ×2 (11:00→21:39)
[2019-08-12] MEDS: LISINOPRIL 10 MG TAB PO SCH (11:00)
--- NOTE | 2019-08-12 12:10 | Consultation ---
History of Present Illness - Reason for Consult Consult date: 08/12/19 Reason for consult: MHE Requesting physician: HALI AMES - Chief Complaint Chief complaint: SI - History of Present Psychiatric Illness Per ED Nurse: Pt is AOx4, pleasant and cooperative. Pt states he is still depr essed and thoughts of suicide comes and goes, emotional support given. In no respiratory distress. Breakfast tray provided at this time. VSS. Pending transport time to [facility]. Will continue to monitor. Psych HPI Patient seen in room at bedside, reports feeling depressed, and suicidal. Denies AVH. REVIEW OF SYSTEMS Constitutional: Negative for weight loss ENT: Negative for stridor Respiratory: Negative for cough or hemoptysis All other systems reviewed and are negative MENTAL STATUS EXAMINATION General Appearance: Dressed appropriately Behavior: Calm and cooperative. Fair eye contact Mood: "Depressed, anxious" Affect: congruent with stated mood Speech: Normal tone and pace Thought Process: Goal oriented Thought Content: Suicidal Ideation: Yes Homicidal Ideation: Denies Hallucinations: Denies Delusions: None elicited Insight and Judgment: Limited Memory/Cognition: Limited Assessment Major Depressive Disorder, Severe, without Psychotic Features Generalized Anxiety Disorder Plan Assess CIWA score MEDICATIONS: Klonopin 0.5mg po BID Increased home Celexa 40mg po daily Agree with Trazodone, Seroquel and Lorazepam prn Risks, benefits and alternatives of medications discussed with the patient, questions answered and consent obtained from patient. PSYCHOTHERAPY: Supportive psychotherapy provided MEDICAL: Per primary team DELIRIUM PRECAUTIONS: Please re-orient patient frequently, keep lights on during the day, and minimize benzodiazepines and opiates as these medications could worsen patient's confusion. SINGER SONGWRITER: Per Medical team. DISPOSITION: The patient meets the requirement for acute inpatient psychiatric hospitalization at this time. He may transfer to an acute psychiatric facility once medically clear. The treatment plan was explained to the patient, including benefits and side effects of medications, He verbalizes understanding and agreement of plan. Will continue to follow until the patient is transferred or his condition improves enough for discharge Thank you for the consult. Please contact with any questions or concerns. Medications and Allergies Allergies Allergy/AdvReac Type Severity Reaction Status Date / Time haloperidol [From Haldol] Allergy Swelling Verified 08/10/19 15:47 haloperidol lactate Allergy Swelling Verified 08/10/19 15:47 [From Haldol] Home Medications Medication Instructions Recorded Confirmed Last Taken Type Celexa 30 mg PO DAILY 10/25/14 08/30/16 11/18/14 History Lisinopril 10 mg PO DAILY 10/25/14 08/30/16 11/18/14 History SEROquel 500 mg PO QHS 10/25/14 08/30/16 11/17/14 History Synthroid 25 mcg PO DAILY 10/25/14 08/30/16 11/18/14 History Xanax TAB 2 mg PO TID 10/25/14 08/30/16 11/17/14 History traZODone 250 mg PO QHS 10/25/14 08/30/16 11/17/14 History Active Meds: Active Medications Citalopram Hydrobromide (Celexa) 40 mg PO QDAY [facility] Clonazepam (Klonopin) 0.5 mg PO BID [facility] Last Admin: 08/11/19 23:11 Dose: 0.5 mg Documented by: Lisinopril (Zestril) 10 mg PO DAILY [facility] Last Admin: 08/11/19 09:46 Dose: Not Given Documented by: Lorazepam (Ativan) 1 mg PO Q12H PRN PRN Reason: Agitation Last Admin: 08/11/19 18:02 Dose: 1 mg Documented by: Quetiapine Fumarate (Seroquel) 300 mg PO QHS [facility] Last Admin: 08/11/19 23:10 Dose: 300 mg Documented by: Trazodone HCl (Desyrel) 100 mg PO QHS [facility] Last Admin: 08/11/19 23:09 Dose: 100 mg Documented by: Mental Status Exam - Vital signs Last Vital Signs Temp 98.0 F 08/12/19 01:25 Pulse 88 08/12/19 01:25 Resp 18 08/12/19 01:25 BP 117/57 08/12/19 01:25 Pulse Ox 98 08/12/19 01:25 Results Result Diagrams: 08/10/19 14:01 08/10/19 14:01 All other labs normal.
[2019-08-12] MEDS: traZODone 50 MG TAB PO SCH (21:38)
[2019-08-12] MEDS: QUEtiapine 100 MG TAB PO SCH (21:40)
--- NOTE | 2019-08-13 10:38 | Progress Note ---
Subjective - Reason for Consult Consult date: 08/13/19 Reason for consult: MHE Requesting physician: HALI AMES - Chief Complaint Chief complaint: Per ED Nurse: Report received from TONI Duffy at change of shift. The following is noted per report: Pt is being seen in the ED due to SI, pt has been accepted to [facility] ([facility]) and is awaiting transportation. On initial encounter pt is sitting in bed, awake, alert and oriented x 4. Pt reports current SI with no plan. Verbal contract for safety. Pt reports feeling depressed and anxious but less than when he initially reported to the ED. He also indicated that he spoke to his son and mother yesterday and now he needs to focus on his recovery. No s/sx of acute distress noted. Will continue to monitor. Psych HPI Patient evaluated this AM, reports persistent depressed mood and Suicidal ideation. Reports good sleep and appetite and compliance with medications MENTAL STATUS EXAMINATION General Appearance: Dressed appropriately Behavior: Calm and cooperative. Fair eye contact Mood: "Depressed, anxious" Affect: congruent with stated mood Speech: Normal tone and pace Thought Process: Goal oriented Thought Content: Suicidal Ideation: Yes Homicidal Ideation: Denies Hallucinations: Denies Delusions: None elicited Insight and Judgment: Limited Memory/Cognition: Limited Assessment Major Depressive Disorder, Severe, without Psychotic Features Generalized Anxiety Disorder Plan Assess CIWA score MEDICATIONS: Klonopin 0.5mg po BID Increased home Celexa 40mg po daily Agree with Trazodone, Seroquel and Lorazepam prn Risks, benefits and alternatives of medications discussed with the patient, questions answered and consent obtained from patient. PSYCHOTHERAPY: Supportive psychotherapy provided MEDICAL: Per primary team DELIRIUM PRECAUTIONS: Please re-orient patient frequently, keep lights on during the day, and minimize benzodiazepines and opiates as these medications could worsen patient's confusion. PARACHUTE OFFICER: Per Medical team. DISPOSITION: The patient meets the requirement for acute inpatient psychiatric hospitalization at this time. He may transfer to an acute psychiatric facility once medically clear. The treatment plan was explained to the patient, including benefits and side effects of medications, He verbalizes understanding and agreement of plan. Will continue to follow until the patient is transferred or his condition impr oves enough for discharge Thank you for the consult. Please contact with any questions or concerns. Mental Status Exam - Vital signs Last Vital Signs Temp 97.8 F 05/16/20 08:00 Pulse 79 08/13/19 08:00 Resp 16 08/13/19 08:00 BP 119/68 08/13/19 08:00 Pulse Ox 97 08/13/19 08:00
[2019-08-13] MEDS: clonazePAM 0.5 MG TAB PO SCH ×2 (10:44→22:28)
[2019-08-13] MEDS: LISINOPRIL 10 MG TAB PO SCH (10:44)
[2019-08-13] MEDS: CITALOPRAM 20 MG TAB PO SCH (10:44)
[2019-08-13] MEDS: QUEtiapine 100 MG TAB PO SCH (22:28)
[2019-08-13] MEDS: traZODone 50 MG TAB PO SCH (22:28)
--- NOTE | 2019-08-14 10:00 | Progress Note ---
Subjective - Reason for Consult Consult date: 08/14/19 Reason for consult: MHE Requesting physician: HALI AMES - Chief Complaint Chief complaint: Per ED Nurse: 0700 Received report from Sully RN, pt resting quietly on recli ner, resp even and non labored, no acute distress noted, no s/s of self harm noted, ambulates as needed to restroom without difficulty, able to make needs known. Psych HPI Patient interviewed by me this AM. Reports persistent depressed mood, still SI and hearing voices telling him to hurt self. Patient also endorses visual hallucinations. Reports sleep and appetite has been good. MENTAL STATUS EXAMINATION General Appearance: Dressed appropriately Behavior: Calm and cooperative. Fair eye contact Mood: "Depressed, anxious" Affect: congruent with stated mood Speech: Normal tone and pace Thought Process: Goal oriented Thought Content: Suicidal Ideation: Yes Homicidal Ideation: Denies Hallucinations: Endorses Delusions: None elicited Insight and Judgment: Limited Memory/Cognition: Limited Assessment Major Depressive Disorder, Severe, without Psychotic Features Generalized Anxiety Disorder Plan Assess CIWA score MEDICATIONS: Klonopin 0.5mg po BID Increased home Celexa 40mg po daily Agree with Trazodone, Seroquel and Lorazepam prn Risks, benefits and alternatives of medications discussed with the patient, questions answered and consent obtained from patient. PSYCHOTHERAPY: Supportive psychotherapy provided MEDICAL: Per primary team DELIRIUM PRECAUTIONS: Please re-orient patient frequently, keep lights on during the day, and minimize benzodiazepines and opiates as these medications could worsen patient's confusion. SOD STRIPPER: Per Medical team. DISPOSITION: The patient meets the requirement for acute inpatient psychiatric hospitalization at this time. He may transfer to an acute psychiatric facility once medically clear. The treatment plan was explained to the patient, including benefits and side effects of medications, He verbalizes understanding and agreement of plan. Will continue to follow until the patient is transferred or his condition improves enough for discharge Thank you for the consult. Please contact with any questions or concerns. Mental Status Exam - Vital signs Last Vital Signs Temp 97.8 F 08/14/19 08:33 Pulse 49 L 08/14/19 08:33 Resp 21 08/14/19 08:33 BP 137/83 08/14/19 08:33 Pulse Ox 98 08/14/19 08:33
[2019-08-14] MEDS: CITALOPRAM 20 MG TAB PO SCH (11:00)
[2019-08-14] MEDS: clonazePAM 0.5 MG TAB PO SCH ×2 (11:00→21:52)
[2019-08-14] MEDS: LISINOPRIL 10 MG TAB PO SCH (11:00)
[2019-08-14] MEDS: LORazepam 1 MG TAB PO PRN (16:50)
[2019-08-14] MEDS: QUEtiapine 100 MG TAB PO SCH (21:50)
[2019-08-14] MEDS: traZODone 50 MG TAB PO SCH (21:51)
[2019-08-15] MEDS: LISINOPRIL 10 MG TAB PO SCH (11:13)
[2019-08-15] MEDS: CITALOPRAM 20 MG TAB PO SCH (11:13)
[2019-08-15] MEDS: clonazePAM 0.5 MG TAB PO SCH ×2 (11:13→21:46)
--- NOTE | 2019-08-15 11:17 | Progress Note ---
Subjective - Reason for Consult Consult date: 08/15/19 Reason for consult: MHE Requesting physician: HALI AMES - Chief Complaint Chief complaint: Per ED Nurse: 0700 Received report from TONI Virk, pt resting quietly on recli ner, resp even and non labored, no acute distress noted, no s/s of self harm noted, ambulates as needed to restroom without difficulty, able to make needs known. Psych HPI Patient interviewed by me this AM. Reports persistent depressed mood, still SI and hearing voices telling him to hurt self. Patient also endorses visual hallucinations. Reports sleep and appetite has been good. MENTAL STATUS EXAMINATION General Appearance: Dressed appropriately Behavior: Calm and cooperative. Fair eye contact Mood: "Depressed, anxious" Affect: incongruent with mood Speech: Normal tone and pace Thought Process: Goal oriented Thought Content: Suicidal Ideation: Yes Homicidal Ideation: Denies Hallucinations: Endorses Delusions: None elicited Insight and Judgment: Limited Memory/Cognition: Limited Assessment Major Depressive Disorder, Severe, without Psychotic Features Generalized Anxiety Disorder Plan Patient has been calm, eating well and has no depressed affect and has been cooperative. Patient had been accepted at facilities before, relapsed on drug use and currently homeless base on new information. Patient says he has a place in [place], [place] and has family here but not willing to share contact about family members because he does not want to know he his in hospital. If patient does not get transferred to any facility, will safely discharge tomorrow. Patient has been here for 5 days and on medications. He has history of medication non compliance upon discharge from facilities. MEDICATIONS: Klonopin 0.5mg po BID Increased home Celexa 40mg po daily Agree with Trazodone, Seroquel and Lorazepam prn Risks, benefits and alternatives of medications discussed with the patient, questions answered and consent obtained from patient. PSYCHOTHERAPY: Supportive psychotherapy provided MEDICAL: Per primary team DELIRIUM PRECAUTIONS: Please re-orient patient frequently, keep lights on during the day, and minimize benzodiazepines and opiates as these medications could worsen patient's confusion. CODING COMPLIANCE SPECIALIST: Per Medical team. DISPOSITION: The patient meets the requirement for acute inpatient psychiatric hospitalization at this time. He may transfer to an acute psychiatric facility once medically clear. The treatment plan was explained to the patient, including benefits and side effects of medications, He verbalizes understanding and agreement of plan. Will continue to follow until the patient is transferred or his condition improves enough for discharge Thank you for the consult. Please contact with any questions or concerns. Mental Status Exam - Vital signs Last Vital Signs Temp 97.8 F 08/15/19 08:58 Pulse 75 08/15/19 08:58 Resp 18 08/15/19 08:58 BP 102/58 08/15/19 08:58 Pulse Ox 98 08/15/19 08:58
[2019-08-15] MEDS: traZODone 50 MG TAB PO SCH (21:46)
[2019-08-15] MEDS: QUEtiapine 100 MG TAB PO SCH (21:47)
[2019-08-16] MEDS ORDERED: ACETAMINOPHEN 500 MG TAB PO ONE (09:05)
[2019-08-16] MEDS: clonazePAM 0.5 MG TAB PO SCH (10:02)
[2019-08-16] MEDS: LISINOPRIL 10 MG TAB PO SCH (10:02)
[2019-08-16] MEDS: CITALOPRAM 20 MG TAB PO SCH (10:02)
--- NOTE | 2019-08-16 10:07 | Progress Note ---
Subjective - Reason for Consult Consult date: 08/16/19 Reason for consult: MHE Requesting physician: HALI AMES - Chief Complaint Chief complaint: Per ED Nurse: Received report from TONI Carson. Pt resting comfortably on chair w ith eyes closed. Easily arousable to verbal stimuli. Pt denies SI/HI or A/V/H. No c/o at this time. Will continue to monitor closely. Psych HPI Patient is homeless, says he his from [place] and seeking mental help because he know he is depressed. Patient still endorsing SI and depressed state this morning even thou he had denied that yesterday evening. Patient has been started on medications since been here for over 6 days. Patient has good insight to his behavior, had been admitted for substance abuse but relapsed and also been medication non compliant outpt. He claims he has family support and that he had been calling them while here but not providing contact information. MENTAL STATUS EXAMINATION General Appearance: Dressed appropriately Behavior: Calm and cooperative. Fair eye contact Mood: "Depressed, anxious" Affect: incongruent with mood Speech: Normal tone and pace Thought Process: Goal oriented Thought Content: Suicidal Ideation: Yes Homicidal Ideation: Denies Hallucinations: Endorses Delusions: None elicited Insight and Judgment: Limited Memory/Cognition: Limited Assessment Major Depressive Disorder, Severe, without Psychotic Features Generalized Anxiety Disorder Plan Patient has been calm, eating well and has no depressed affect and has been cooperative. Patient had been accepted at facilities before, relapsed on drug use and currently homeless base on new information. Patient says he has a place in [place], [place] and has family here but not willing to share contact about family members because he does not want to know he his in hospital. In my professional opinion, patient has achieved the maximum benefits of inpatient treatment at this time. Continuing inpatient treatment is contraindicated, as it will reinforce maladaptive behaviors. He has been started on medications and attempt were made to transfer but no transport. Pt has been in transport status for 6 days. Pt care can be transferred outpt with counselling. Plan to safely discharge MEDICATIONS: Increased home Celexa 40mg po daily Agree with Trazodone, Seroquel and Lorazepam prn Risks, benefits and alternatives of medications discussed with the patient, questions answered and consent obtained from patient. PSYCHOTHERAPY: Supportive psychotherapy provided MEDICAL: Per primary team DELIRIUM PRECAUTIONS: Please re-orient patient frequently, keep lights on during the day, and minimize benzodiazepines and opiates as these medications could worsen patient's confusion. PICCOLO MECHANIC: Per Medical team. DISPOSITION: No indication for inpatient hospitalization. Outpt counselling and follow up recommended The treatment plan was explained to the patient, including benefits and side effects of medications, He verbalizes understanding and agreement of plan. Will continue to follow until the patient is transferred or his condition improves enough for discharge Thank you for the consult. Please contact with any questions or concerns. Mental Status Exam - Vital signs Last Vital Signs Temp 97.9 F 08/16/19 01:47 Pulse 81 08/16/19 10:02 Resp 16 08/16/19 09:44 BP 112/67 08/16/19 10:02 Pulse Ox 98 08/16/19 01:47
[2019-08-16 14:35] VITALS: BP 109/59
== END 2019-08-16 17:03 | disposition home or self-care (01) ==
LOC: ED 13:33 → EEVIPCON 13:33 → ED 08-16 17:03
DX: F31.9 Bipolar disorder, unspecified (principal); F20.89 Other schizophrenia; F43.10 Post-traumatic stress disorder, unspecified; F17.200 Nicotine dependence, unspecified, uncomplicated; F12.10 Cannabis abuse, uncomplicated; Z79.899 Other long term (current) drug therapy; Z88.6 Allergy status to analgesic agent
CPT/HCPCS: 36415; 80048; 80307; 80320; 81001; 85025; G0480

== ENCOUNTER 2020-04-24 14:04 | Emergency (ER) | payer SELFPAY ==
--- NOTE | 2020-04-24 15:36 | Event Note ---
ED Screening Note ED Screening Note: SI TO OD PTSD This initial assessment/diagnostic orders/clinical plan/treatment(s) is/are subject to change based on patients health status, clinical progression and re- assessment by fellow clinical providers in the ED. Further treatment and workup at subsequent clinical providers discretion. Patient/guardian urged not to elope from the ED as their condition may be serious if not clinically assessed and managed. Initial orders include: E 1013
[2020-04-24 16:14] LABS: Basophils # (Auto) 0.1 K/mm3 (0.0-0.1); Eosinophils % (Auto) 0.7 % (0.0-4.3); Hematocrit 44.4 % (35.5-45.6); Hemoglobin 14.6 gm/dl (11.8-15.2); Lymphocytes # (Auto) 2.3 K/mm3 (1.2-5.4); Lymphocytes % (Auto) 39.9 % (13.4-35.0); Mean Corpuscular HGB Conc 33 % (32-34); Mean Corpuscular Volume 86 fl (84-94); Monocytes # (Auto) 0.5 K/mm3 (0.0-0.8); Monocytes % (Auto) 9.5 % (0.0-7.3); Platelet Count 241 K/mm3 (140-440); Red Blood Count 5.17 M/mm3 (3.65-5.03); Red Cell Distribution Width 14.1 % (13.2-15.2)
[2020-04-24 16:40] LABS: Alanine Aminotransferase 37 units/L (7-56); BUN/Creatinine Ratio 10; Blood Urea Nitrogen 10 mg/dL (9-20); Calcium 8.7 mg/dL (8.4-10.2); Hemolysis Index 8
--- NOTE | 2020-04-24 21:39 | Emergency Department Report ---
HPI - General Chief Complaint: Psych Time Seen by Provider: 04/24/20 15:36 - HPI HPI: This is a 29-year-old -[place] male who presents to the emergency department with complaint of suicidal thoughts with a plan to overdose on his Seroquel. Patient has a history of schizoaffective disorder and says that he has been compliant with his medications. However, the patient has been having visual hallucinations and he has also been having some flashbacks as part of his history of PTSD. Today the patient began feeling suicidal and contacted his [facility] counselor, who brought him to the emergency department for further evaluation. He also has a past medical history of hypertension and hypothyroidism. He denies any illicit drug use or current alcohol use. ED Past Medical Hx - Past Medical History Previous Medical History?: Yes Hx Hypertension: Yes Hx Psychiatric Treatment: Yes (SCHIZOPHRENIA / PTSD) Additional medical history: hypothyroid - Social History Smoking Status: Current Every Day Smoker Substance Use Type: Alcohol, Marijuana - Medications Home Medications: Home Medications Medication Instructions Recorded Confirmed Last Taken Type Celexa 30 mg PO DAILY 10/25/14 08/30/16 11/18/14 History Lisinopril 10 mg PO DAILY 10/25/14 08/30/16 11/18/14 History SEROquel 500 mg PO QHS 10/25/14 08/30/16 11/17/14 History Synthroid 25 mcg PO DAILY 10/25/14 08/30/16 11/18/14 History traZODone 250 mg PO QHS 10/25/14 08/30/16 11/17/14 History Citalopram [Celexa] 40 mg PO QDAY #30 tablet 08/16/19 Unknown Rx QUEtiapine [SEROquel] 300 mg PO QHS #30 tablet 08/16/19 Unknown Rx lisinopriL [Zestril TAB] 10 mg PO DAILY tablet 08/16/19 Unknown Rx traZODone [Desyrel] 100 mg PO QHS #30 tablet 08/16/19 Unknown Rx ED Review of Systems ROS: Stated complaint: MEDICAL CLEARANCE Other details as noted in HPI Comment: All other systems reviewed and negative Constitutional: denies: chills, fever ENT: denies: ear pain, throat pain Respiratory: denies: cough, shortness of breath Cardiovascular: denies: chest pain, palpitations Gastrointestinal: denies: abdominal pain, vomiting Musculoskeletal: denies: back pain, arthralgia Neurological: denies: headache, weakness Psychiatric: visual hallucinations, suicidal thoughts. denies: homicidal thoughts Physical Exam - Physical Exam Vital Signs: Vital Signs 04/24/20 15:38 Temperature 98.4 F Pulse Rate 83 Respiratory 18 Rate Blood Pressure 144/78 O2 Sat by Pulse 98 Oximetry Physical Exam: GENERAL: The patient is well-developed well-nourished. HENT: Normocephalic. Atraumatic. Patient has moist mucous membranes. EYES: Extraocular motions are intact. NECK: Supple. Trachea is midline. CHEST/LUNGS: Clear to auscultation. There is no respiratory distress noted. HEART/CARDIOVASCULAR: Regular. There is no tachycardia. There is no murmur. ABDOMEN: Abdomen is soft, nontender. Patient has normal bowel sounds. SKIN: Skin is warm and dry. NEURO: The patient is awake, alert, and oriented. The patient is cooperative. The patient has no focal neurologic deficits. Normal speech. MUSCULOSKELETAL: There is no tenderness or deformity. There is no limitation range of motion. ED Course Vital Signs 04/24/20 15:38 Temperature 98.4 F Pulse Rate 83 Respiratory 18 Rate Blood Pressure 144/78 O2 Sat by Pulse 98 Oximetry ED Medical Decision Making - Lab Data Result diagrams: 04/24/20 15:56 04/24/20 15:56 Lab Results 04/24/20 04/24/20 04/24/20 Range/Units 15:56 15:56 15:56 WBC 5.7 (4.5-11.0) K/mm3 RBC 5.17 H (3.65-5.03) M/mm3 Hgb 14.6 (11.8-15.2) gm/dl Hct 44.4 (35.5-45.6) % MCV 86 (84-94) fl MCH 28 (28-32) pg MCHC 33 (32-34) % RDW 14.1 (13.2-15.2) % Plt Count 241 (140-440) K/mm3 Lymph % (Auto) 39.9 H (13.4-35.0) % Green % (Auto) 9.5 H (0.0-7.3) % Eos % (Auto) 0.7 (0.0-4.3) % Baso % (Auto) 1.0 (0.0-1.8) % Lymph # (Auto) 2.3 (1.2-5.4) K/mm3 Green # (Auto) 0.5 (0.0-0.8) K/mm3 Eos # (Auto) 0.0 (0.0-0.4) K/mm3 Baso # (Auto) 0.1 (0.0-0.1) K/mm3 Seg Neutrophils % 48.9 (40.0-70.0) % Seg Neutrophils # 2.8 (1.8-7.7) K/mm3 Sodium (137-145) mmol/L Potassium (3.6-5.0) mmol/L Chloride (98-107) mmol/L Carbon Dioxide (22-30) mmol/L Anion Gap mmol/L BUN (9-20) mg/dL Creatinine (0.8-1.3) mg/dL Estimated GFR ml/min BUN/Creatinine Ratio % Glucose (75-100) mg/dL Calcium (8.4-10.2) mg/dL Total Bilirubin (0.1-1.2) mg/dL AST (5-40) units/L ALT (7-56) units/L Alkaline Phosphatase (35-129) units/L Total Protein (6.3-8.2) g/dL Albumin (3.9-5) g/dL Albumin/Globulin Ratio % Urine Color (Yellow) Urine Turbidity (Clear) Urine pH (5.0-7.0) Ur Specific [place] (1.003-1.030) Urine Protein (Negative) mg/dL Urine Glucose (UA) (Negative) mg/dL Urine Ketones (Negative) mg/dL Urine Blood (Negative) Urine Nitrite (Negative) Urine Bilirubin (Negative) Urine Urobilinogen (<2.0) mg/dL Ur Leukocyte Esterase (Negative) Urine WBC (Auto) (0.0-6.0) /HPF Urine RBC (Auto) (0.0-6.0) /HPF Urine Mucus /HPF Salicylates < 0.3 L (2.8-20.0) mg/dL Urine Opiates Screen Urine Methadone Screen Acetaminophen 5.0 L (10.0-30.0) ug/mL Ur Barbiturates Screen Ur Phencyclidine Scrn Ur Amphetamines Screen U Benzodiazepines Scrn Urine Cocaine Screen Plasma/Serum Alcohol (0-0.07) % 04/24/20 04/24/20 04/24/20 Range/Units 15:56 15:56 Unknown WBC (4.5-11.0) K/mm3 RBC (3.65-5.03) M/mm3 Hgb (11.8-15.2) gm/dl Hct (35.5-45.6) % MCV (84-94) fl MCH (28-32) pg MCHC (32-34) % RDW (13.2-15.2) % Plt Count (140-440) K/mm3 Lymph % (Auto) (13.4-35.0) % Green % (Auto) (0.0-7.3) % Eos % (Auto) (0.0-4.3) % Baso % (Auto) (0.0-1.8) % Lymph # (Auto) (1.2-5.4) K/mm3 Green # (Auto) (0.0-0.8) K/mm3 Eos # (Auto) (0.0-0.4) K/mm3 Baso # (Auto) (0.0-0.1) K/mm3 Seg Neutrophils % (40.0-70.0) % Seg Neutrophils # (1.8-7.7) K/mm3 Sodium 140 (137-145) mmol/L Potassium 4.2 (3.6-5.0) mmol/L Chloride 107.5 H (98-107) mmol/L Carbon Dioxide 27 (22-30) mmol/L Anion Gap 10 mmol/L BUN 10 (9-20) mg/dL Creatinine 1.0 (0.8-1.3) mg/dL Estimated GFR > 60 ml/min BUN/Creatinine Ratio 10 % Glucose 95 (75-100) mg/dL Calcium 8.7 (8.4-10.2) mg/dL Total Bilirubin 0.30 (0.1-1.2) mg/dL AST 24 (5-40) units/L ALT 37 (7-56) units/L Alkaline Phosphatase 71 (35-129) units/L Total Protein 6.9 (6.3-8.2) g/dL Albumin 4.0 (3.9-5) g/dL Albumin/Globulin Ratio 1.4 % Urine Color Yellow (Yellow) Urine Turbidity Clear (Clear) Urine pH 5.0 (5.0-7.0) Ur Specific [place] 1.020 (1.003-1.030) Urine Protein <15 mg/dl (Negative) mg/dL Urine Glucose (UA) Neg (Negative) mg/dL Urine Ketones Neg (Negative) mg/dL Urine Blood Neg (Negative) Urine Nitrite Neg (Negative) Urine Bilirubin Neg (Negative) Urine Urobilinogen < 2.0 (<2.0) mg/dL Ur Leukocyte Esterase Neg (Negative) Urine WBC (Auto) 1.0 (0.0-6.0) /HPF Urine RBC (Auto) 1.0 (0.0-6.0) /HPF Urine Mucus 1+ /HPF Salicylates (2.8-20.0) mg/dL Urine Opiates Screen Urine Methadone Screen Acetaminophen (10.0-30.0) ug/mL Ur Barbiturates Screen Ur Phencyclidine Scrn Ur Amphetamines Screen U Benzodiazepines Scrn Urine Cocaine Screen Plasma/Serum Alcohol < 0.01 (0-0.07) % 04/24/20 Range/Units Unknown WBC (4.5-11.0) K/mm3 RBC (3.65-5.03) M/mm3 Hgb (11.8-15.2) gm/dl Hct (35.5-45.6) % MCV (84-94) fl MCH (28-32) pg MCHC (32-34) % RDW (13.2-15.2) % Plt Count (140-440) K/mm3 Lymph % (Auto) (13.4-35.0) % Green % (Auto) (0.0-7.3) % Eos % (Auto) (0.0-4.3) % Baso % (Auto) (0.0-1.8) % Lymph # (Auto) (1.2-5.4) K/mm3 Green # (Auto) (0.0-0.8) K/mm3 Eos # (Auto) (0.0-0.4) K/mm3 Baso # (Auto) (0.0-0.1) K/mm3 Seg Neutrophils % (40.0-70.0) % Seg Neutrophils # (1.8-7.7) K/mm3 Sodium (137-145) mmol/L Potassium (3.6-5.0) mmol/L Chloride (98-107) mmol/L Carbon Dioxide (22-30) mmol/L Anion Gap mmol/L BUN (9-20) mg/dL Creatinine (0.8-1.3) mg/dL Estimated GFR ml/min BUN/Creatinine Ratio % Glucose (75-100) mg/dL Calcium (8.4-10.2) mg/dL Total Bilirubin (0.1-1.2) mg/dL AST (5-40) units/L ALT (7-56) units/L Alkaline Phosphatase (35-129) units/L Total Protein (6.3-8.2) g/dL Albumin (3.9-5) g/dL Albumin/Globulin Ratio % Urine Color (Yellow) Urine Turbidity (Clear) Urine pH (5.0-7.0) Ur Specific [place] (1.003-1.030) Urine Protein (Negative) mg/dL Urine Glucose (UA) (Negative) mg/dL Urine Ketones (Negative) mg/dL Urine Blood (Negative) Urine Nitrite (Negative) Urine Bilirubin (Negative) Urine Urobilinogen (<2.0) mg/dL Ur Leukocyte Esterase (Negative) Urine WBC (Auto) (0.0-6.0) /HPF Urine RBC (Auto) (0.0-6.0) /HPF Urine Mucus /HPF Salicylates (2.8-20.0) mg/dL Urine Opiates Screen Negative Urine Methadone Screen Negative Acetaminophen (10.0-30.0) ug/mL Ur Barbiturates Screen Negative Ur Phencyclidine Scrn Negative Ur Amphetamines Screen Negative U Benzodiazepines Scrn Negative Urine Cocaine Screen Negative Plasma/Serum Alcohol (0-0.07) % - Medical Decision Making This patient presents to the emergency department with a complaint of suicidal ideations with a plan to overdose on his psychiatric medication. For this reason he has been made a 1013. His labs have been unremarkable including CBC, metabolic panel, blood alcohol level, urinalysis, and urine drug screen, except for positive for marijuana on the UDS. Vital signs have been reassuring throughout his ED course thus far. The patient was seen by the psychiatric assessment team who agrees with the plan for inpatient stabilization. He is medically cleared for psychiatric placement. Critical Care Time: No Critical care attestation.: If time is entered above; I have spent that time in minutes in the direct care of this critically ill patient, excluding procedure time. ED Disposition Clinical Impression: Suicidal ideation, Medical clearance for psychiatric admission Disposition: [id number] PSY HOSP/PSY UNIT Is pt being admited?: No Condition: Stable Time of Disposition: 23:36
[2020-04-24 23:05] LABS: Bilirubin,Urine NEG (Negative); Blood,Urine NEG (Negative); Color,Urine Yellow (Yellow); Mucus,Urine 1+ /HPF; Protein,Urine <15 mg/dL mg/dL (Negative); Urobilinogen,Urine < 2.0 mg/dL (<2.0)
[2020-04-24 23:38] LABS: Cannabinoid Screen,Urine PRESUMPTIVE POSITIVE
[2020-04-24 23:47] LABS: Amphetamine Screen,Urine PRESUMPTIVE NEGATIVE; Benzodiazepines Screen,Urine PRESUMPTIVE NEGATIVE; Methadone Screen,Urine PRESUMPTIVE NEGATIVE; Opiate Screen,Urine PRESUMPTIVE NEGATIVE
[2020-04-24 23:48] LABS: Cocaine Screen,Urine PRESUMPTIVE NEGATIVE
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
[2020-04-25 09:09] VITALS: BP 138/74
[2020-04-25] MEDS ORDERED: QUEtiapine 100 MG TAB PO SCH (10:00)
[2020-04-25] MEDS ORDERED: traZODone 50 MG TAB PO SCH (22:00)
== END 2020-04-25 18:00 ==
LOC: ED 14:04
DX: R45.851 Suicidal ideations (principal); F17.200 Nicotine dependence, unspecified, uncomplicated; F12.90 Cannabis use, unspecified, uncomplicated; F25.9 Schizoaffective disorder, unspecified; I10 Essential (primary) hypertension; E03.9 Hypothyroidism, unspecified; Z79.899 Other long term (current) drug therapy; Z88.8 Allergy status to other drugs, medicaments and biological substances; Z00.8 Encounter for other general examination; Z20.828 Contact with and (suspected) exposure to other viral communicable diseases
CPT/HCPCS: 36415; 80053; 80307; 81001; 85025; 99285; U0003; 80320; G0480

== ENCOUNTER 2020-05-02 17:48 | Emergency (ER) | payer SELFPAY ==
--- NOTE | 2020-05-02 18:50 | Event Note ---
ED Screening Note ED Screening Note: states he has been having increased anxiety states he has increased his alcohol use states he has PTSD and has intermittent thoughts of SI he denies SI currently he states he feels "SI when he has flashbacks from his PTSD" no HI states he was at [place] a couple of weeks ago This initial assessment/diagnostic orders/clinical plan/treatment(s) is/are subject to change based on patients health status, clinical progression and re- assessment by fellow clinical providers in the ED. Further treatment and workup at subsequent clinical providers discretion. Patient/guardian urged not to elope from the ED as their condition may be serious if not clinically assessed and managed. Initial orders include: mental health evaluation
[2020-05-02 18:54] LABS: Bilirubin,Urine NEG (Negative); Blood,Urine NEG (Negative); Color,Urine Yellow (Yellow); Protein,Urine <15 mg/dL mg/dL (Negative); Urobilinogen,Urine < 2.0 mg/dL (<2.0)
[2020-05-02 18:55] LABS: WBC,Urine < 1.0 /HPF (0.0-6.0)
[2020-05-02 19:01] LABS: Amphetamine Screen,Urine Negative; Benzodiazepines Screen,Urine Negative; Cannabinoid Screen,Urine Negative; Cocaine Screen,Urine Negative; Methadone Screen,Urine Negative; Opiate Screen,Urine Negative
[2020-05-02 19:15] LABS: Hematocrit 47.5 % (35.5-45.6); Hemoglobin 15.8 gm/dl (11.8-15.2); Mean Corpuscular HGB Conc 33 % (32-34); Mean Corpuscular Volume 86 fl (84-94); Platelet Count 212 K/mm3 (140-440); Red Blood Count 5.56 M/mm3 (3.65-5.03); Red Cell Distribution Width 14.1 % (13.2-15.2)
[2020-05-02 20:01] LABS: Total Cells Counted 100
[2020-05-02 20:02] LABS: Platelet Estimate Consistent w Auto; RBC Morphology Normal
[2020-05-02 20:07] LABS: Alanine Aminotransferase 39 units/L (7-56); Albumin 4.3 g/dL (3.9-5); BUN/Creatinine Ratio 11; Blood Urea Nitrogen 11 mg/dL (9-20); Calcium 9.1 mg/dL (8.4-10.2); Hemolysis Index 34
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
[2020-05-02 23:30] LABS: BUN/Creatinine Ratio 13; Blood Urea Nitrogen 12 mg/dL (9-20); Calcium 9.3 mg/dL (8.4-10.2); Hemolysis Index 7
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
[2020-05-03] MEDS ORDERED: QUEtiapine 50 MG, QUEtiapine 100 MG PO SCH (10:00)
[2020-05-03] MEDS ORDERED: FLUoxetine 10 MG TAB PO SCH (10:00)
[2020-05-03] MEDS: QUEtiapine 25 MG TAB PO SCH ×2 (10:53→23:25)
[2020-05-03] MEDS: hydrOXYzine PAMOATE 25 MG CAP PO SCH ×2 (10:53→23:25)
[2020-05-03] MEDS: QUEtiapine 100 MG TAB PO SCH ×2 (10:53→23:25)
[2020-05-03 20:29] VITALS: BP 127/72
[2020-05-03] MEDS ORDERED: traZODone 50 MG TAB PO SCH (22:00)
== END 2020-05-04 01:30 ==
LOC: EEVIPCON 17:48 → ED 17:48
DX: R45.851 Suicidal ideations (principal); F25.9 Schizoaffective disorder, unspecified; E03.9 Hypothyroidism, unspecified; F17.200 Nicotine dependence, unspecified, uncomplicated; F12.90 Cannabis use, unspecified, uncomplicated; Z79.899 Other long term (current) drug therapy; Z88.8 Allergy status to other drugs, medicaments and biological substances; Z20.828 Contact with and (suspected) exposure to other viral communicable diseases
CPT/HCPCS: 36415; 80048; 80053; 80307; 81001; 85007; 85025; 99285; Q0177; U0003; 80320; G0480